=== PATIENT | female | born 1955 | race Caucasian/White ===

== ENCOUNTER 2019-10-21 13:14 | Emergency (ER) | payer OTHER ==
[2019-10-21 13:49] VITALS: BP 150/94
--- NOTE | 2019-10-21 14:18 | UC ---
Upper Extremity HPI - HPI Summary HPI Summary: Pt presents with c/o left hand and elbow swelling and bruising s/p falling form standing height. Pt reports that hand and elbow are not tender, just swollen and discolored - History of Current Complaint Chief Complaint: UCUpperExtremity Stated Complaint: S/P FALL LEFT HAND/ARM INJURY Time Seen by Provider: 10/21/19 13:44 Hx Obtained From: Patient ?: No Onset/Duration: Sudden Onset, Still Present Severity Initially: Moderate Severity Currently: Moderate Pain Intensity: 2 Character: Dull Aggravating Factor(s): Movement Alleviating Factor(s): Rest Associated Signs And Symptoms: Positive: Swelling, Bruising Related History: Dominant Hand Right - Risk Factors Non-Orthopedic Risk Factor: Negative DVT Risk Factors: Negative Septic Arthritis Risk Factor: Negative - Allergies/Home Medications Allergies/Adverse Reactions: Allergies Allergy/AdvReac Type Severity Reaction Status Date / Time Penicillins Allergy Swelling Verified 10/21/19 13:41 Home Medications: Home Medications Aspirin EC TAB* [Ecotrin EC Low Dose 81 MG*] 81 mg PO DAILY 10/21/19 [History Confirmed 10/21/19] Calcium Carbonate/Vitamin D3 [Calcium 600 + Vit D Tablet] 1 each PO BID [History Confirmed 10/21/19] Cranberry 500 mg PO DAILY 10/21/19 [History Confirmed 10/21/19] Diltiazem CD CAP* [Cardizem CD CAP*] 180 mg PO DAILY 10/21/19 [History Confirmed 10/21/19] Glucosam/Chondr/Collagn/Hyalur [Th Glucosamine/Chondroiti] 1 cap PO BID [History Confirmed 10/21/19] Hydrochlorothiazide TAB* [Hydrodiuril TAB*] 25 mg PO DAILY 10/21/19 [History Confirmed 10/21/19] Magnesium Oxide TAB* [MagOx 400 TAB*] 400 mg PO BID 10/21/19 [History Confirmed 10/21/19] [place]-3/Dha/Epa/Fish Oil [Fish Oil 1,000 mg Softgel] 1,000 mg PO DAILY 10/21/19 [History Confirmed 10/21/19] Vitamin THERAPEUTIC TAB* [Theragran TAB*] 1 tab PO DAILY 10/21/19 [History Confirmed 10/21/19] PMH/Surg Hx/FS Hx/Imm Hx Previously Healthy: Yes Cardiovascular History: Cardiac Disease - Surgical History Surgical History: Yes Surgery Procedure, Year, and Place: Right [facility], ~2015 - Family History Known Family History: Positive: Cardiac Disease - Social History Occupation: Retired Alcohol Use: Weekly Substance Use Type: None Smoking Status (MU): Never Smoked Tobacco Have You Smoked in the Last Year: No Review of Systems All Other Systems Reviewed And Are Negative: Yes Constitutional: Positive: Negative Skin: Positive: Bruising Eyes: Positive: Negative ENT: Positive: Negative Respiratory: Positive: Negative Cardiovascular: Positive: Negative Gastrointestinal: Positive: Negative Genitourinary: Positive: Negative Motor: Positive: Other - left hand and elbow swelling Neurovascular: Positive: Negative Musculoskeletal: Positive: Edema Neurological/Mental Status: Positive: Negative Psychological: Positive: Negative Is Patient Immunocompromised?: No Physical Exam Triage Information Reviewed: Yes Appearance: Well-Appearing Vital Signs: Initial Vital Signs Temp 98 F 10/21/19 13:35 Pulse 74 10/21/19 13:35 Resp 16 10/21/19 13:35 BP 150/94 10/21/19 13:35 Pulse Ox 97 10/21/19 13:35 Vital Signs Reviewed: Yes Eye Exam: Normal ENT Exam: Normal Dental Exam: Normal Neck exam: Normal Respiratory: Positive: No respiratory distress Musculoskeletal: Positive: Edema @ - left hand swelling along 4th metacarpal and left proximal ulna Neurological Exam: Normal Psychological Exam: Normal Skin Exam: Other - hematoma, left hand at 4th metacarpal, left proximal ulna Diagnostics - Radiology No standard instances Radiology Interpretation Completed By: Radiologist - negative for fracture of hand and elbow Upper Extremity Course/Dx - Differential Dx/Diagnosis Differential Diagnosis/HQI/PQRI: Contusion, Fracture (Closed), Hematoma Provider Diagnosis: Traumatic hematoma of left hand, Traumatic hematoma of left elbow Discharge ED - Sign-Out/Discharge Documenting (check all that apply): Patient Departure All imaging exams completed and their final reports reviewed: Yes - Discharge Plan Condition: Stable Disposition: HOME Patient Education Materials: Contusion in Adults (ED), Ice Pack Application (ED ), Hematoma (ED) Referrals: Sander Corbin MD [Medical Doctor] - If Needed Bipin Frank MD [Primary Care Provider] - If Needed - Billing Disposition and Condition Condition: STABLE Disposition: Home
== END 2019-10-21 14:50 | disposition home or self-care (01) ==
LOC: UCCORT 13:14
DX: S60.222A Contusion of left hand, initial encounter (principal); S50.02XA Contusion of left elbow, initial encounter; Z88.0 Allergy status to penicillin; Z79.82 Long term (current) use of aspirin; W18.30XA Fall on same level, unspecified, initial encounter; Y92.9 Unspecified place or not applicable
CPT/HCPCS: 99202; G0463